=== PATIENT | male | born 1940 | race Caucasian/White ===

== ENCOUNTER 2017-02-21 12:32 | Emergency (ER) | payer OTHER, BC ==
[~2017-02-21] VITALS: Ht 170.2 cm; Wt 102.7 kg
[2017-02-21 13:51] LABS: microscopic required? YES; urine erythrocyte 2+ (NEGATIVE)
[2017-02-21 15:38] VITALS: BP 131/73
== END 2017-02-21 15:00 | disposition home or self-care (01) ==
LOC: ED 12:32
PROVIDERS: Emergency Medicine
DX: R33.9 Retention of urine, unspecified (principal); Z88.0 Allergy status to penicillin